=== PATIENT | male | born 1990 | race Caucasian/White ===

== ENCOUNTER → 2025-02-17 | Outpatient (CLI) | LOC: M SOG 07:38 | PROVIDERS: ATTEND Physician Assistant | DX: M79.644 Pain in right finger(s) (principal) ==

== ENCOUNTER 2025-02-23 11:53 | Day surgery (SDC) | payer BC ==
[~2025-02-23] VITALS: Ht 170.2 cm; Wt 88.3 kg
[2025-02-23] MEDS ORDERED: dexAMETHasone 4 MG/ML 1 ML VIAL As Ordered ONE (12:29)
[2025-02-23] MEDS ORDERED: LIDOCAINE 2% 100 MG/5 ML SDV (FOR ANES.) As Ordered ONE (12:29)
[2025-02-23] MEDS ORDERED: ONDANSETRON 4MG/2ML VIAL As Ordered ONE (12:29)
[2025-02-23] MEDS ORDERED: KETOROLAC 30 MG/ML 1 ML VIAL As Ordered ONE (12:30)
[2025-02-23] MEDS ORDERED: MIDAZOLAM INJ 2 MG/2 ML VIAL As Ordered ONE (12:32)
[2025-02-23] MEDS ORDERED: LR 1,000 ML IV SCH (12:35)
[2025-02-23] MEDS: ceFAZolin SOD 2 GM IV ONCE IV ONE (13:29)
[2025-02-23] MEDS ORDERED: ACETAMINOPHEN 1000MG/100ML IV BAG As Ordered ONE (13:32)
[2025-02-23] MEDS ORDERED: dexmedeTOMIDine (4 MCG/ML) 200 MCG/50 ML BTL As Ordered ONE (13:58)
[2025-02-23] MEDS ORDERED: PERC5TAB12 PO (14:45)
[2025-02-23] MEDS: HYDROMORPHONE HCL 0.5 MG/0.5 ML SYRINGE IV PRN (14:48)
[2025-02-23] MEDS: ONDANSETRON 4MG/2ML VIAL IV PRN (14:48)
[2025-02-23 15:45] VITALS: BP 142/86; TEMP 97.4; O2SAT 98
== END 2025-02-23 16:00 | disposition home or self-care (01) ==
LOC: M SDC 11:53
PROVIDERS: ATTEND Orthopaedic Surgery Hand Surgery
DX: S62.316A Displaced fracture of base of fifth metacarpal bone, right hand, initial encounter for closed fracture (principal); W22.8XXA Striking against or struck by other objects, initial encounter; Y93.9 Activity, unspecified; Y92.9 Unspecified place or not applicable; Z88.0 Allergy status to penicillin
CPT/HCPCS: 26615; 76000; J0131; J0665; J0688; J1100; J1171; J1885; J2250; J2405; J3010

== ENCOUNTER → 2025-03-03 | Outpatient (CLI) | payer BC ==
[~2025-03-03] MED LIST: PERC5TAB12 PO
== END ==
LOC: M SOG 10:38
PROVIDERS: ATTEND Physician Assistant
DX: S62.316A Displaced fracture of base of fifth metacarpal bone, right hand, initial encounter for closed fracture (principal); Y93.9 Activity, unspecified; Y92.9 Unspecified place or not applicable

== ENCOUNTER → 2025-03-17 | Outpatient (CLI) | payer BC | LOC: M SOG 07:38 | PROVIDERS: ATTEND Physician Assistant | DX: M79.641 Pain in right hand (principal); Z98.890 Other specified postprocedural states ==